=== PATIENT | male | born 1990 | race Caucasian/White ===

== ENCOUNTER 2017-11-28 12:04 | Emergency (ER) | payer MEDICAID ==
[~2017-11-28] VITALS: Ht 170.2 cm; Wt 102.2 kg
[~2017-11-28 12:04] MED LIST: IBUP-1984 PO; [UNRECOGNIZED DRUG - REMARK]
[2017-11-28 12:15] VITALS: BP 146/96
== END 2017-11-28 13:10 | disposition home or self-care (01) ==
LOC: ER 12:06
DX: M79.641 Pain in right hand (principal); J45.909 Unspecified asthma, uncomplicated; F32.9 Major depressive disorder, single episode, unspecified; Z98.890 Other specified postprocedural states
CPT/HCPCS: 29125; 99283

== ENCOUNTER 2020-02-16 11:23 | Emergency (ER) | payer MEDICAID ==
[~2020-02-16] VITALS: Ht 167.6 cm; Wt 113.6 kg
[~2020-02-16 11:23] MED LIST changes: +HYDR-4383 PO
[2020-02-16 11:25] VITALS: BP 155/101
[2020-02-16] MEDS ORDERED: IBUP-1985 PO (13:20)
[2020-02-16] MEDS ORDERED: AMOX-117 PO (13:20)
[2020-02-16] MEDS ORDERED: ACET-1015 PO (13:20)
== END 2020-02-16 13:35 | disposition home or self-care (01) ==
LOC: ER 11:24
DX: K02.9 Dental caries, unspecified (principal); K04.7 Periapical abscess without sinus; F32.9 Major depressive disorder, single episode, unspecified; Z98.890 Other specified postprocedural states; Z56.0 Unemployment, unspecified; Z79.899 Other long term (current) drug therapy
CPT/HCPCS: 99283

== ENCOUNTER 2020-06-17 13:34 | Emergency (ER) | payer MEDICAID ==
[~2020-06-17] VITALS: Ht 167.6 cm; Wt 110.2 kg
[~2020-06-17 13:34] MED LIST changes: +IBUP-1985 PO
[2020-06-17 13:55] VITALS: BP 135/89
== END 2020-06-17 14:40 | disposition home or self-care (01) ==
LOC: ER 13:35
DX: M25.571 Pain in right ankle and joints of right foot (principal); J45.909 Unspecified asthma, uncomplicated; F32.9 Major depressive disorder, single episode, unspecified; Z98.890 Other specified postprocedural states; Z56.0 Unemployment, unspecified; Z79.899 Other long term (current) drug therapy
CPT/HCPCS: 29515; 73630; 99283

== ENCOUNTER 2020-08-03 13:32 | Emergency (ER) | payer MEDICAID ==
[~2020-08-03] VITALS: Ht 170.2 cm; Wt 113.4 kg
[2020-08-03 14:30] VITALS: BP 156/110
== END 2020-08-03 14:50 | disposition home or self-care (01) ==
LOC: ER 13:32
DX: L91.8 Other hypertrophic disorders of the skin (principal); J45.909 Unspecified asthma, uncomplicated; F32.9 Major depressive disorder, single episode, unspecified; Z98.890 Other specified postprocedural states; Z56.0 Unemployment, unspecified; Z79.899 Other long term (current) drug therapy
CPT/HCPCS: 99281

== ENCOUNTER 2021-03-11 11:22 | Emergency (ER) | payer MEDICAID ==
[~2021-03-11] VITALS: Ht 167.6 cm; Wt 108.2 kg
[2021-03-11 11:38] VITALS: BP 155/93
[2021-03-11] MEDS ORDERED: CHLO473M3 PO (11:52)
[2021-03-11] MEDS ORDERED: PENI500T2 PO (11:52)
== END 2021-03-11 11:56 | disposition home or self-care (01) ==
LOC: ER 11:23
DX: K04.7 Periapical abscess without sinus (principal); J45.909 Unspecified asthma, uncomplicated; F32.9 Major depressive disorder, single episode, unspecified; Z98.890 Other specified postprocedural states; Z56.0 Unemployment, unspecified; Z79.899 Other long term (current) drug therapy
CPT/HCPCS: 99283

== ENCOUNTER 2021-04-21 02:00 | Emergency (ER) | payer MEDICAID ==
[~2021-04-21] VITALS: Ht 167.6 cm; Wt 111.4 kg
[~2021-04-21 02:00] MED LIST changes: +CHLO473M3 PO
[2021-04-21] MEDS ORDERED: HYDR-3965 PO (03:16)
[2021-04-21 03:25] VITALS: BP 155/95
== END 2021-04-21 03:26 | disposition home or self-care (01) ==
LOC: ER 02:00
DX: K02.9 Dental caries, unspecified (principal); K08.89 Other specified disorders of teeth and supporting structures; J45.909 Unspecified asthma, uncomplicated; F32.9 Major depressive disorder, single episode, unspecified; Z98.890 Other specified postprocedural states; Z56.0 Unemployment, unspecified; Z79.899 Other long term (current) drug therapy
CPT/HCPCS: 99283

== ENCOUNTER 2021-05-29 19:59 | Emergency (ER) | payer MEDICAID ==
[~2021-05-29] VITALS: Ht 167.6 cm; Wt 106.5 kg
--- NOTE | 2021-05-29 20:51 | NUR ---
no changes in medical history since last visit.
[2021-05-29] MEDS ORDERED: PENI500T2 PO (22:02)
[2021-05-29 22:16] VITALS: BP 138/78
== END 2021-05-29 22:19 | disposition home or self-care (01) ==
LOC: ER 19:59
DX: S03.2XXA Dislocation of tooth, initial encounter (principal); K04.7 Periapical abscess without sinus; K02.9 Dental caries, unspecified; J45.909 Unspecified asthma, uncomplicated; F32.9 Major depressive disorder, single episode, unspecified; Z98.890 Other specified postprocedural states; Z56.0 Unemployment, unspecified; Z79.899 Other long term (current) drug therapy; X58.XXXA Exposure to other specified factors, initial encounter; Y93.89 Activity, other specified; Y92.89 Other specified places as the place of occurrence of the external cause; Y99.8 Other external cause status
CPT/HCPCS: 99283

== ENCOUNTER 2021-12-28 14:30 | Emergency (ER) | payer MEDICAID ==
[~2021-12-28] VITALS: Ht 167.6 cm; Wt 113.6 kg
[2021-12-28 14:31] VITALS: BP 145/100
== END 2021-12-28 17:14 | disposition home or self-care (01) ==
LOC: ER 14:30
DX: M79.641 Pain in right hand (principal); J45.909 Unspecified asthma, uncomplicated; F32.9 Major depressive disorder, single episode, unspecified; Z98.890 Other specified postprocedural states; Z56.0 Unemployment, unspecified; Z79.899 Other long term (current) drug therapy
CPT/HCPCS: 29125; 73130; 99283

== ENCOUNTER 2022-02-04 22:03 | Emergency (ER) | payer MEDICAID ==
[~2022-02-04] VITALS: Ht 167.6 cm; Wt 51.6 kg
[2022-02-04] MEDS ORDERED: oxymetazoline 15 ML nasal spray NS ONE (22:30)
[2022-02-04 22:51] VITALS: BP 145/90
== END 2022-02-04 22:53 | disposition home or self-care (01) ==
LOC: ER 22:03
DX: R04.0 Epistaxis (principal); I10 Essential (primary) hypertension; J45.909 Unspecified asthma, uncomplicated; F32.A Depression, unspecified; Z98.890 Other specified postprocedural states; Z56.0 Unemployment, unspecified; Z79.899 Other long term (current) drug therapy
CPT/HCPCS: 99284

== ENCOUNTER 2022-02-19 15:06 | Emergency (ER) | payer MEDICAID ==
[~2022-02-19] VITALS: Ht 167.6 cm; Wt 113.6 kg
[2022-02-19 15:45] VITALS: BP 156/100
== END 2022-02-19 16:49 | disposition home or self-care (01) ==
LOC: ER 15:07
DX: M79.671 Pain in right foot (principal); I10 Essential (primary) hypertension; J45.909 Unspecified asthma, uncomplicated; F32.9 Major depressive disorder, single episode, unspecified; Z56.0 Unemployment, unspecified; X58.XXXA Exposure to other specified factors, initial encounter; Y93.89 Activity, other specified; Y92.89 Other specified places as the place of occurrence of the external cause; Y99.8 Other external cause status
CPT/HCPCS: 73630; 99283

== ENCOUNTER 2022-03-23 20:11 | Emergency (ER) | payer MEDICAID ==
[~2022-03-23] VITALS: Ht 167.6 cm; Wt 111.4 kg
[2022-03-23 20:14] VITALS: BP 154/94
[2022-03-23] MEDS ORDERED: ketorolac trometh inj. 60 MG/2 ML VIAL IM ONE (21:30)
== END 2022-03-23 22:28 | disposition home or self-care (01) ==
LOC: ER 20:11
DX: M79.671 Pain in right foot (principal); R22.41 Localized swelling, mass and lump, right lower limb; R26.89 Other abnormalities of gait and mobility; I10 Essential (primary) hypertension; J45.909 Unspecified asthma, uncomplicated; Z79.899 Other long term (current) drug therapy
CPT/HCPCS: 73630; 96372; 99283; J1885

== ENCOUNTER 2022-05-04 17:44 | Emergency (ER) | payer MEDICAID ==
[~2022-05-04] VITALS: Ht 167.6 cm; Wt 125.0 kg
[2022-05-04 17:47] VITALS: BP 161/104
== END 2022-05-04 19:07 | disposition home or self-care (01) ==
LOC: ER 17:44
DX: J30.2 Other seasonal allergic rhinitis (principal); K13.79 Other lesions of oral mucosa; I10 Essential (primary) hypertension; F32.9 Major depressive disorder, single episode, unspecified; Z98.890 Other specified postprocedural states; Z79.899 Other long term (current) drug therapy
CPT/HCPCS: 99282

== ENCOUNTER → 2022-06-14 | Emergency (ER) | payer MEDICAID ==
[~2022-06-14] VITALS: Ht 167.6 cm; Wt 110.0 kg
[2022-06-14 15:40] VITALS: BP 139/98
== END | disposition home or self-care (01) ==
LOC: ER 14:49
DX: R22.41 Localized swelling, mass and lump, right lower limb (principal); I10 Essential (primary) hypertension; J45.909 Unspecified asthma, uncomplicated
CPT/HCPCS: 29515; 99283; L1930

== ENCOUNTER 2022-10-15 15:07 | Emergency (ER) | payer MEDICAID ==
[~2022-10-15] VITALS: Ht 167.6 cm; Wt 120.0 kg
[2022-10-15 15:14] VITALS: BP 191/130
== END 2022-10-15 16:48 | disposition left against medical advice (07) ==
LOC: ER 15:08
DX: M79.602 Pain in left arm (principal); Z53.21 Procedure and treatment not carried out due to patient leaving prior to being seen by health care provider

== ENCOUNTER 2022-12-18 19:19 | Emergency (ER) | payer MEDICAID ==
[~2022-12-18] VITALS: Ht 167.6 cm; Wt 104.0 kg
[2022-12-18 19:29] VITALS: BP 132/72
[2022-12-18] MEDS ORDERED: NIRM1TAB PO ×2 (20:20)
== END 2022-12-18 20:33 | disposition home or self-care (01) ==
LOC: ER 19:20
DX: J06.9 Acute upper respiratory infection, unspecified (principal); Z20.822 Contact with and (suspected) exposure to COVID-19; I10 Essential (primary) hypertension; J45.909 Unspecified asthma, uncomplicated
CPT/HCPCS: 87635; 99284; C9803

== ENCOUNTER 2024-03-23 12:47 | Emergency (ER) | payer MEDICAID, OTHER ==
[~2024-03-23] VITALS: Ht 167.6 cm; Wt 109.0 kg
[2024-03-23 13:44] VITALS: BP 166/99; PULSE 101; RESP 18; TEMP 98.3; O2SAT 96
[2024-03-23] MEDS ORDERED: POLOS EACHEYE (14:11)
== END 2024-03-23 14:29 | disposition home or self-care (01) ==
LOC: ER 12:47
DX: H10.89 Other conjunctivitis (principal); I10 Essential (primary) hypertension; J45.909 Unspecified asthma, uncomplicated
CPT/HCPCS: 99283

== ENCOUNTER 2024-03-26 15:45 | Emergency (ER) | payer OTHER ==
[~2024-03-26] VITALS: Ht 167.6 cm; Wt 106.5 kg
[~2024-03-26 15:45] MED LIST changes: +POLOS EACHEYE
[2024-03-26 17:59] VITALS: BP 145/86; PULSE 86; RESP 16; TEMP 97.8; O2SAT 98
== END 2024-03-26 18:02 | disposition home or self-care (01) ==
LOC: ER 15:45
DX: M25.562 Pain in left knee (principal); I10 Essential (primary) hypertension; J45.909 Unspecified asthma, uncomplicated; F32.A Depression, unspecified; Z79.899 Other long term (current) drug therapy
CPT/HCPCS: 73564; 99283

== ENCOUNTER 2024-03-28 14:27 | Emergency (ER) | payer OTHER ==
[2024-03-28 14:31] VITALS: BP 157/93; PULSE 100; RESP 18; TEMP 97.3; O2SAT 96
== END 2024-03-28 15:36 | disposition home or self-care (01) ==
LOC: ER 14:28
DX: M25.562 Pain in left knee (principal); I10 Essential (primary) hypertension; J45.909 Unspecified asthma, uncomplicated; F32.9 Major depressive disorder, single episode, unspecified
CPT/HCPCS: 99282

== ENCOUNTER 2024-05-02 11:14 | Outpatient (CLI) | payer OTHER ==
[~2024-05-02 11:14] MED LIST changes: -POLOS EACHEYE
== END 2024-05-02 23:59 | disposition home or self-care (01) ==
LOC: MRI 11:14
PROVIDERS: ATTEND Registered Nurse
DX: S86.812A Strain of other muscle(s) and tendon(s) at lower leg level, left leg, initial encounter (principal); M71.22 Synovial cyst of popliteal space [Baker], left knee; M25.462 Effusion, left knee; M89.8X7 Other specified disorders of bone, ankle and foot; X58.XXXA Exposure to other specified factors, initial encounter; Y93.89 Activity, other specified; Y92.89 Other specified places as the place of occurrence of the external cause; Y99.8 Other external cause status
CPT/HCPCS: 73721

== ENCOUNTER 2024-10-06 10:19 | Emergency (ER) | payer OTHER ==
[~2024-10-06] VITALS: Ht 167.6 cm; Wt 113.6 kg
[~2024-10-06 10:19] MED LIST changes: +CHLO473M13 PO; -CHLO473M3 PO
[2024-10-06 10:25] VITALS: BP 173/97; PULSE 90; O2SAT 94
[2024-10-06] MEDS: amoxicillin 250mg capsule PO STA (11:05)
[2024-10-06] MEDS ORDERED: AMOX875T10 PO (11:09)
[2024-10-06 11:16] VITALS: RESP 17; TEMP 98.2
== END 2024-10-06 11:17 | disposition home or self-care (01) ==
LOC: ER 10:20
DX: K08.89 Other specified disorders of teeth and supporting structures (principal); I10 Essential (primary) hypertension; J45.909 Unspecified asthma, uncomplicated; F32.A Depression, unspecified; Z98.890 Other specified postprocedural states; Z79.1 Long term (current) use of non-steroidal anti-inflammatories (NSAID); Z79.899 Other long term (current) drug therapy
CPT/HCPCS: 99283